=== PATIENT | female | born 1945 | race Caucasian/White ===

== ENCOUNTER → 2020-04-16 | Outpatient (CLI) | payer MEDICARE, OTHER ==
[~2020-04-16] MED LIST: IBUP-1902 PO; LEVO112T41 PO; OXYC1TAB7 PO; PROP15DR2 EACHEYE; THYR15TA PO; THYR30TA PO
== END | disposition home or self-care (01) ==
LOC: STAR 14:49
PROVIDERS: ATTEND Orthopaedic Surgery
DX: Z01.818 Encounter for other preprocedural examination (principal); R22.32 Localized swelling, mass and lump, left upper limb; Z20.828 Contact with and (suspected) exposure to other viral communicable diseases
CPT/HCPCS: 87635; 93005